=== PATIENT | female | born 1930 | race Caucasian/White ===

== ENCOUNTER 2017-12-18 08:09 | Emergency (ER) | payer OTHER ==
[~2017-12-18 08:09] MED LIST: ALBU2.5V2 IH; ARFO15VI3 IH; BUDE0.5A3 IH; DILT120C92 PO; FURO40TA5 PO; ISOS20TA9 PO; LORA1TAB3 PO; POTA20TA82 PO; SPIR25TA6 PO; WARF-67 PO
[2017-12-18] MEDS ORDERED: LIDOCAINE HCL-MPF 1% 2ML VIAL ONE (08:25)
[2017-12-18] MEDS ORDERED: LIDOCAINE HCL 2% 20ML ONE (09:00)
[2017-12-18] MEDS ORDERED: BENZOCAINE/LANOLIN/ALOE VERA 60 ML AEROSOL TP ONE (11:51)
[2017-12-18] MEDS ORDERED: OCTYL 2-CYANOACRYLATE 1 EACH TP ONE ×2 (12:50→12:58)
== END 2017-12-18 19:17 | disposition home or self-care (01) ==
LOC: EDH 08:09
DX: S81.011A Laceration without foreign body, right knee, initial encounter (principal); S82.034A Nondisplaced transverse fracture of right patella, initial encounter for closed fracture; I11.0 Hypertensive heart disease with heart failure; I50.9 Heart failure, unspecified; J44.9 Chronic obstructive pulmonary disease, unspecified; Z85.3 Personal history of malignant neoplasm of breast; Z88.0 Allergy status to penicillin; Z88.1 Allergy status to other antibiotic agents; W01.0XXA Fall on same level from slipping, tripping and stumbling without subsequent striking against object, initial encounter; Y93.89 Activity, other specified; Y92.89 Other specified places as the place of occurrence of the external cause; Y99.8 Other external cause status
CPT/HCPCS: 12034; 29505; 73562; 99284; J3490

== ENCOUNTER 2020-08-30 09:50 | Emergency (ER) | payer OTHER ==
[~2020-08-30 09:50] MED LIST changes: +ACET-2743 PO; -DILT120C92 PO; +DILT180C89 PO; +DOCU-116 PO; +DOCU-133 PO; +ERGO500014 PO; +LEVO500T2 PO; +OMEP20CA12 PO; +SENN8.6T32 PO; -WARF-67 PO
== END 2020-08-30 13:24 | disposition home or self-care (01) ==
LOC: EDH 09:50
DX: L72.3 Sebaceous cyst (principal); I48.91 Unspecified atrial fibrillation; I50.9 Heart failure, unspecified; J44.9 Chronic obstructive pulmonary disease, unspecified; I10 Essential (primary) hypertension; Z90.49 Acquired absence of other specified parts of digestive tract; Z90.710 Acquired absence of both cervix and uterus; Z98.890 Other specified postprocedural states; Z88.0 Allergy status to penicillin; Z88.1 Allergy status to other antibiotic agents; Z88.6 Allergy status to analgesic agent

== ENCOUNTER 2021-03-15 09:44 | Emergency (ER) | payer OTHER ==
[~2021-03-15] VITALS: Ht 157.5 cm; Wt 77.1 kg
[2021-03-15 09:59] VITALS: BP 153/70
[2021-03-15 11:25] LABS: BASOPHILS % (AUTO) 0.2 % (0.0-5.0); EOSINOPHILS % (AUTO) 1.2 % (0.0-8.0); HEMATOCRIT 44.4 % (36-48); LYMPHOCYTES % (AUTO) 16.4 % (21.0-51.0); MEAN CORPUSCULAR HEMOGLOBIN 30.2 pg (27.0-33.0); MEAN CORPUSCULAR HGB CONC 31.3 g/dL (32.0-36.0); MEAN CORPUSCULAR VOLUME 96.3 fL (79-99); MONOCYTES % (AUTO) 5.5 % (3.0-13.0); NEUTROPHILS % (AUTO) 75.5 % (40.0-77.0); PLATELET COUNT (AUTO) 214 K/uL (130-400); RED BLOOD CELL COUNT(AUTO) 4.61 MIL/uL (4.00-5.50); RED CELL DISTRIBUTION WIDTH 13.6 % (11.0-15.5); WHITE BLOOD COUNT (AUTO) 8.2 K/uL (4.8-10.8)
[2021-03-15 11:30] VITALS: BP 140/70
[2021-03-15 11:41] LABS: ALBUMIN 3.4 g/dL (3.5-5.0); BILIRUBIN,TOTAL 0.5 mg/dL (0.2-1.0); CREATININE 1.3 mg/dL (0.5-1.5); POTASSIUM 4.3 mmol/L (3.5-5.1); TOTAL PROTEIN, SERUM 7.4 g/dL (6.0-8.3)
[2021-03-15 11:51] LABS: B-TYPE NATRIURETIC PEPTIDE 143 pg/mL (0-100)
[2021-03-15] MEDS ORDERED: ACETAMINOPHEN 500 MG TABLET PO SCH (12:30)
[2021-03-15 13:09] VITALS: BP 135/72
[2021-03-15 14:36] VITALS: BP 135/55
[2021-03-15 16:17] VITALS: BP 130/63
[2021-03-15] MEDS ORDERED: ONDANSETRON 4MG INJ IVP PRN (16:30)
[2021-03-15] MEDS ORDERED: CLONIDINE HCL 0.1 MG TABLET PO PRN (16:30)
[2021-03-15] MEDS ORDERED: ACETAMINOPHEN 650 MG SUPPOSITORY RC PRN (16:30)
[2021-03-15] MEDS ORDERED: ACETAMINOPHEN 325 MG TAB PO PRN (16:30)
[2021-03-15] MEDS ORDERED: TEMAZEPAM 15 MG CAPSULE PO PRN (16:30)
[2021-03-15] MEDS ORDERED: TRAMADOL HCL 50 MG TABLET PO PRN (16:30)
[2021-03-16] MEDS ORDERED: POLYETHYLENE GLYCOL 3350 17 GM POWD.PACK PO SCH (09:00)
[2021-03-16] MEDS ORDERED: PANTOPRAZOLE 40 MG TAB DR PO SCH (09:00)
== END 2021-03-15 17:08 | disposition home or self-care (01) ==
LOC: EDH 09:44
DX: S32.049A Unspecified fracture of fourth lumbar vertebra, initial encounter for closed fracture (principal); I10 Essential (primary) hypertension; I48.91 Unspecified atrial fibrillation; Z79.899 Other long term (current) drug therapy; Z88.0 Allergy status to penicillin; W18.39XA Other fall on same level, initial encounter; Y93.89 Activity, other specified; Y92.89 Other specified places as the place of occurrence of the external cause; Y99.8 Other external cause status
CPT/HCPCS: 36415; 71045; 74176; 80053; 83735; 83880; 84484; 85025; 93005